=== PATIENT | male | born 1945 | race American Indian/Alaskan Native ===

== ENCOUNTER 2016-12-01 09:54 | Inpatient (IN) | payer MEDICARE ==
[2016-12-01 11:07] LABS: Anion Gap 18 mmol/L; BUN/Creatinine Ratio 18.46; Blood Urea Nitrogen 24 mg/dL (9-20); Carbon Dioxide 26 mmol/L (22-30); Chloride 103.2 mmol/L (98-107); Glucose 102 mg/dL (75-100); Potassium 4.8 mmol/L (3.6-5.0); Sodium 142 mmol/L (137-145)
[2016-12-01 11:09] LABS: Basophils % (Auto) 0.9 % (0.0-1.8); Eosinophils % (Auto) 5.1 % (0.0-4.3); Hematocrit 43.8 % (35.5-45.6); Hemoglobin 14.7 gm/dl (11.8-15.2); Mean Corpuscular HGB Conc 34 % (32-34); Mean Corpuscular Hemoglobin 32 pg (28-32); Mean Corpuscular Volume 95 fl (84-94); Platelet Count 184 K/mm3 (140-440); Red Blood Count 4.62 M/mm3 (3.65-5.03); Red Cell Distribution Width 13.8 % (13.2-15.2); White Blood Count 5.1 K/mm3 (4.5-11.0)
[2016-12-01] MEDS ORDERED: NITROSTAT SL ONE (17:56)
[2016-12-01] MEDS ORDERED: ZOFRAN IV ONE (17:56)
[2016-12-01] MEDS ORDERED: MORPHINE IV ONE (17:56)
[2016-12-01] MEDS ORDERED: BABY ASPIRIN PO ONE (17:57)
--- NOTE | 2016-12-01 17:57 | Emergency Department Report ---
HPI - General Chief Complaint: Chest Pain Time Seen by Provider: 12/01/16 17:35 - HPI HPI: The patient is 71-year-old male who presents for evaluation of chest pain. The patient reports chest pain since 7 AM this morning, constant since onset, pressure-like in quality, 7/10 in severity. The patient denies fever, truama to the chest, neck pain, parasthesias, dyspnea, cough, hemoptysis, palpitations, dizziness, syncope, unilateral leg swelling, calf muscle pain, history of DVT or PE, history of cancer, history of recent surgery or immobilization. ED Past Medical Hx - Past Medical History Hx Hypertension: Yes Hx Renal Disease: Yes Hx Psychiatric Treatment: Yes (depression) Additional medical history: BPH. high cholesterol - Surgical History Additional Surgical History: back - Social History Smoking Status: Never Smoker Substance Use Type: None - Medications Home Medications: Home Medications Medication Instructions Recorded Confirmed Last Taken Type Aspirin [Adult Low Dose Aspirin EC] 81 mg PO QDAY 12/01/16 12/01/16 Unknown History Dutasteride [Avodart] 0.5 cap PO QDAY 12/01/16 12/01/16 Unknown History Ergocalciferol(Vitamin D2)(Nf) 1.25 mg PO QWEEK 12/01/16 12/01/16 Unknown History Lisinopril [Zestril TAB] 5 mg PO QDAY 12/01/16 12/01/16 Unknown History Nortriptyline [Pamelor] 50 mg PO QDAY 12/01/16 12/01/16 Unknown History Simvastatin [Zocor TAB] 20 mg PO QDAY 12/01/16 12/01/16 Unknown History Tamsulosin [Flomax] 0.4 cap PO BID 12/01/16 12/01/16 Unknown History ED Review of Systems ROS: Stated complaint: CHEST PAIN Other details as noted in HPI Constitutional: denies: fever ENT: denies: throat or neck pain Respiratory: denies: cough, shortness of breath Cardiovascular: reports chest pain Endocrine: denies unexplained weight loss or gain Gastrointestinal: denies: abdominal pain, nausea Genitourinary: denies: dysuria Musculoskeletal: denies: leg swelling Skin: denies: rash Neurological: denies: headache Hematological/Lymphatic: denies: easy bleeding or easy bruising Psych: denies sadness or hopelessness Physical Exam - Physical Exam Vital Signs: Vital Signs 12/01/16 10:11 Temperature 98.4 F Pulse Rate 89 Respiratory 16 Rate Blood Pressure 140/73 O2 Sat by Pulse 99 Oximetry Physical Exam: General: well-nourished, well-developed, no acute distress Head: Normocephalic, atraumatic Eyes: normal sclera ENT: Mucous membranes are pink and moist Neck: trachea midline, neck supple, No neck stiffness, no cervical adenopathy Respiratory: Breath sounds equal bilaterally, no wheezing, rales, or rhonchi Cardio: S1 and S2 present, no murmurs, rubs, gallops, capillary refill is brisk Abdomen: Normoactive bowel sounds, soft abdomen, no rigidity, no guarding or rebound tenderness Musc: No pitting edema Skin: No rash Neuro: no facial drooping, normal speech Psych: Normal affect ED Course Vital Signs 12/01/16 10:11 Temperature 98.4 F Pulse Rate 89 Respiratory 16 Rate Blood Pressure 140/73 O2 Sat by Pulse 99 Oximetry ED Medical Decision Making - Lab Data Result diagrams: 12/01/16 10:36 12/01/16 10:36 - Medical Decision Making The patient was seen and examined by myself. The patient is placed on a manager film and continuous pulse ox. On initial evaluation, the patient was found to be in no distress. EKG was negative for findings suggestive of acute cardiac infarct. The patient is given an aspirin and a nitroglycerin tablet. Labs and imaging are obtained. The patient given IV morphine for his pain. Chest x-ray is negative for pneumothorax, focal consolidation, pulmonary vascular congestion, pleural effusion, or other obvious acute cardiopulmonary disease process. Lab results were non-revealing including negative troponin, WBC, hemoglobin, hematocrit, electrolytes, renal function. The patient was reevaluated and reported that their symptoms were improved. As the patient has chest pain and risk factors for development of acute coronary event, the patient will be admitted for close cardiopulmonary monitoring, serial troponins, and evaluation by cardiology. The physician on-call was contacted. They presented to the emergency department and evaluated the patient. They agreed to admit the patient. The ED admit order was placed. The patient was admitted in guarded condition. Critical care attestation.: If time is entered above; I have spent that time in minutes in the direct care of this critically ill patient, excluding procedure time. ED Disposition Clinical Impression: Acute chest pain Disposition: OP ADMITTED IP TO THIS HOSP Is pt being admited?: Yes Does the pt Need Aspirin: Yes Condition: Stable Time of Disposition: 17:57
--- NOTE | 2016-12-01 18:04 | Admit Criteria Form ---
Admission Criteria Documentation: CHEST PAIN Clinical Indications for Admission to Inpatient Care (Place 'X' for any and all applicable criteria): Admission is indicated for chest pain and ANY ONE of the following(1)(2)(3)(4)(5 ): [ ]I. Angina with acute coronary syndrome (Also use Myocardial Infarction or Angina guideline) [ ]II. Hemodynamic instability [ ]III. Angina needing acute intervention as indicated by ALL of the following( 11)(12): [ ]a) Unstable angina is present as indicated by angina that is ANY ONE of the following: [ ]i) New onset [ ]ii) Nocturnal [ ]iii) Prolonged at rest [ ]iv) Progressive [ ]b) Angina warrants acute intervention as indicated by ANY ONE of the following: [ ]i) Recurrent angina (e.g, not responding as previously to treatment) [ ]ii) Angina at rest or with low-level activities despite initial medical therapy [ ]iii) New or presumably new ST-segment depression on ECG [ ]iv) Signs or symptoms of heart failure (eg, dyspnea, pulmonary edema) [ ]v) New or worsening mitral regurgitation [ ]vi) Hemodynamic instability [ ]vii) Dangerous arrhythmia (eg, sustained ventricular tachycardia) [ ]viii) History of percutaneous coronary intervention within 6 months [ ]ix) History of coronary artery bypass graft surgery [ ]x) DARRELL risk score of 2 or greater[A] [ ]xi) History of Diabetes(14) [ ]xii) High-risk cardiac ischemia findings on noninvasive testing (e.g, echocardiogram, treadmill testing, nuclear scan) [ ]xiii) Chronic renal insufficiency (ie, estimated GFR less than 60 mL/min/1.732m) [ ]xiv) Left ventricular ejection fraction less than 40% [ ]IV. Evidence of OR (eg, cardiac biomarkers positive, ST-segment elevation on ECG) also use Myocardial Infarction Criteria Form. [ ]V. Pulmonary edema [ ]. Respiratory distress [ ]VII. Chest pain indicative of serious diagnosis other than coronary artery disease (eg, aortic dissection) [ ]VIII. Contraindications and/or Inappropriate clinical situations for Observational Care in patients with Chest Pain, when ANY ONE of the following is required: [ ]a) Patient with risk factor for pulmonary embolism, acute coronary syndrome and myocardial infarction (18) [ ]b) Patient with Pulmonary embolism require an average LOS of 4.3 days, therefore emergency department observation management is inappropriate 18,23 [ ]c) Painful condition/s in the elderly, have the highest rate of recidivism after emergency department observation management (10.8%) 20,21,22 [ ]d) Elevated cardiac biomarker requires intensive and exhaustive care (19) [X ]IX. General contraindications and/or Inappropriate clinical situations for Observational Care in patients with Chest Pain, when ANY ONE of the following is required: [ X]a) Prediction of prolongation of LOS based on ANY ONE of the following may be considered as a contraindication for observational care 2, 3, 4, 5, 6, 7, 8, 9, 10, 11 [ X]i) Age > 65 yrs. [ ]ii) Patient arriving by ambulance [ ]iii) Patient with high acuity [ ]iv) Patient requiring vital sign monitoring [ ]v) Patient on IV medication [ ]b) Systolic blood pressures 180mmHg 3,12 [ ]c) Patient with altered mental status including delirium and other alteration of consciousness, (3) [ ]d) Patient whose discharge disposition will be to a [place] [facility] home or rehabilitation home should not be managed in Emergency Department Observation Unit. CMS rule requires 3 days hospital stay before such placement. 3,13 [ ]e) Patient with failure to thrive due to broad array of etiologies 3,16,17 [ ]f) Inability to ambulate 3,14 Extended stay beyond goal length of stay may be needed for (1)(28): [ ]a) Specific condition diagnosed after evaluation (eg, pulmonary embolism, aortic dissection) [ ]b) Unstable angina [ ]c) Continued suspicion of acute coronary syndrome with inability to complete needed cardiac evaluation (eg, patient clinically unable to undergo stress testing) [ ]d) Myocardial infarction (Contents from ANGINA and CHEST PAIN clinical indications for admission to inpatient care have been integrated in this form) The original [facility] content created by [employer] has been revised. The portions of the content which have been revised are identified through the use of italic text or in bold, and [employer] [facility] has neither reviewed nor approved the modified material. All other unmodified content is copyright [facility]. Please see references footnoted in the original [employer] [facility] edition 2016 Admission Criteria Met: Yes
--- NOTE | 2016-12-01 19:45 | History and Physical Report ---
History of Present Illness Chief complaint: My chest hurts History of present illness: 71 YO Male with HTN, BPH, HLD, Depression presents to ED for evaluation. Pt states that he has been experiencing pain in his chest for the past 3 days with worsening symptoms over the past 8 hours. Pain is 6/10, substernal, nonradiating , not worsened with exertion, or relieved with rest. Pt denies Orthopnea/PND or difficulty breathing. Pt denies fever, chills, Palpitations, NVD, Syncope, Falls , vertigo, seizures, unintentional weight loss, night sweats, bone pain, or recent ill contacts, prolonged travel/immobility, calf pain, leg swelling, individual/family history of DVT/PE. Past History Past Medical History: hypertension Past Surgical History: No surgical history, Other (reviewed) Social history: , lives with family. denies: smoking, alcohol abuse, prescription drug abuse Family history: hypertension Medications and Allergies Allergies Allergy/AdvReac Type Severity Reaction Status Date / Time No Known Allergies Allergy Verified 12/01/16 10:17 Home Medications Medication Instructions Recorded Confirmed Last Taken Type Aspirin [Adult Low Dose Aspirin EC] 81 mg PO QDAY 12/01/16 12/01/16 Unknown History Dutasteride [Avodart] 0.5 cap PO QDAY 12/01/16 12/01/16 Unknown History Ergocalciferol(Vitamin D2)(Nf) 1.25 mg PO QWEEK 12/01/16 12/01/16 Unknown History Lisinopril [Zestril TAB] 5 mg PO QDAY 12/01/16 12/01/16 Unknown History Nortriptyline [Pamelor] 50 mg PO QDAY 12/01/16 12/01/16 Unknown History Simvastatin [Zocor TAB] 20 mg PO QDAY 12/01/16 12/01/16 Unknown History Tamsulosin [Flomax] 0.4 cap PO BID 12/01/16 12/01/16 Unknown History Review of Systems All systems: negative Cardiovascular: chest pain Exam - Constitutional Vitals: Temp Pulse Resp BP Pulse Ox 98.4 F 69 16 125/75 99 12/01/16 10:11 12/01/16 18:41 12/01/16 10:11 12/01/16 18:41 12/01/16 10:11 General appearance: Present: no acute distress, well-nourished - EENT Eyes: Present: PERRL ENT: hearing intact, clear oral mucosa - Neck Neck: Present: supple, normal ROM - Respiratory Respiratory effort: normal Respiratory: bilateral: CTA - Cardiovascular Heart Sounds: Present: S1 & S2. Absent: rub, click - Extremities Extremities: pulses symmetrical, No edema Peripheral Pulses: within normal limits - Abdominal General gastrointestinal: Present: soft, non-tender, non-distended, normal bowel sounds Male genitourinary: Present: normal - Integumentary Integumentary: Present: clear, warm, dry - Musculoskeletal Musculoskeletal: gait normal, strength equal bilaterally - Psychiatric Psychiatric: appropriate mood/affect, intact judgment & insight - Neurologic Neurologic: CNII-XII intact, moves all extremities Results - Labs CBC & Chem 7: 12/01/16 10:36 12/01/16 10:36 Labs: Abnormal lab results 12/01/16 12/01/16 Range/Units 10:36 10:36 MCV 95 H (84-94) fl Lymph % (Auto) 37.5 H (13.4-35.0) % Leslie % (Auto) 8.3 H (0.0-7.3) % Eos % (Auto) 5.1 H (0.0-4.3) % BUN 24 H (9-20) mg/dL Glucose 102 H (75-100) mg/dL Assessment and Plan - Patient Problems (1) ACS (acute coronary syndrome) Current Visit: Yes Status: Acute Plan to address problem: Serial cardiac enzymes, ekg, telemetry monitoring, echo, stress test, cardiology consulted, d dimer, (2) Accelerated hypertension Current Visit: Yes Status: Acute Plan to address problem: monitor BP q shift, continue current therapy (3) Depression Current Visit: Yes Status: Chronic Qualifiers: Depression Type: D Major depression recurrence: M Active/Remission status : A Major depression episode severity: M Psychotic features: P Trimester: T Plan to address problem: Resume home medication, Pt denies SI/HI, or hallucinations, (4) BPH (benign prostatic hyperplasia) Current Visit: Yes Status: Acute Qualifiers: Prostatic enlargement morphology: P Lower urinary tract symptom presence: L Plan to address problem: Stable, continue current therapy, (5) DVT prophylaxis Current Visit: Yes Status: Acute
[2016-12-01] MEDS ORDERED: DUONEB 0.5 MG-3 MG/3 ML SOLN IH PRN (20:27)
[2016-12-01] MEDS ORDERED: MILK OF MAGNESIA PO PRN (20:27)
[2016-12-01] MEDS ORDERED: ZOFRAN IV PRN (20:27)
[2016-12-01] MEDS ORDERED: DULCOLAX PR PRN (20:27)
[2016-12-01] MEDS ORDERED: TYLENOL PO PRN (20:27)
[2016-12-01] MEDS ORDERED: SODIUM CHLORIDE FLUSH SYRINGE 10 ML IV PRN (20:27)
[2016-12-01] MEDS ORDERED: PROVENTIL IH PRN (20:32)
--- NOTE | 2016-12-02 07:27 | XRay Report ---
AP CHEST: HISTORY: chest pain AP view of the chest demonstrates a normal mediastinal and cardiac contour with clear lungs and normal bony and soft tissue structures. IMPRESSION: Unremarkable AP chest.
[2016-12-02] MEDS ORDERED: LEXISCAN IV ONE ×2 (08:55→08:58)
--- NOTE | 2016-12-02 12:09 | Event Note ---
Date: 12/02/16 Patient admitted with atypical chest pain Echo - normal LVEF MPI - no ischemia ECG - no ischemic changes Alejo - negative D-Dimer - mildly elevated CXR - normal Recommendations: No further cardiac work-up is needed Consider CTA chest for borderline D-dimer elevation
[2016-12-02] MEDS ORDERED: NACL ONE (16:24)
--- NOTE | 2016-12-02 16:50 | Cat Scan Report ---
CTA CHEST INDICATION: Chest pain, abnormal d-dimer. COMPARISON: None similar. FINDINGS: Chest CTA performed following intravenous administration of 100 cc of Omnipaque 350. Rotational MIP's also obtained. Normal heart size. Mild aortic arch calcifications. No aortic aneurysm or dissection. No suspicious pulmonary arterial filling defects. No effusions or size significant adenopathy. Patent central airway. Normal imaged thyroid. Mild bilateral emphysematous changes, most involving the upper lobes. Nonspecific distal esophageal wall prominence/thickening, not excluded for gastroesophageal reflux and/or hiatal hernia, amongst others. Few small hepatic hypodensities/cysts, some sub-centimeter while the largest right hepatic lobe 1.7 cm focus measures 2 HU, axial image 224, series 2. Multilevel spinal degenerative changes, more so upper to mid thoracic. CONCLUSION: No CT evidence of pulmonary embolism with COPD and few other incidental findings, as above. Thank you for the opportunity to participate in this patient's care.
[2016-12-02 17:37] VITALS: BP 111/67
--- NOTE | 2016-12-02 18:03 | Discharge Summary ---
Providers - Providers Date of Admission: 12/01/16 20:27 Date of discharge: 12/02/16 Attending physician: CODIE ROCKWELL 12/01/16 20:30 Consult to Physician [CONS] Routine Consulting Provider: EYAD BRAMBILA Reason For Exam: acs Place consult to:: cardiology Notified:: freeman Was contact made?: Yes Primary care physician: CHRISTOPHER FOSTER Hospitalization Reason for admission: chest pain Condition: Stable Pertinent studies: Echocardiogram with normal left ventricular ejection fraction Lexicon stress was normal Procedures: Stress test Hospital course: Patient is 71-year-old gentleman with a history of hyperlipidemia, hypertension depression and BPH presented emergency to the Department on account of a chest pain of 3 days duration. Chest pain was 6/10 in severity, substernal. Nonradiating. Progressively worse in the past 8 hours prior to presentation. On admission patient was commenced on oxygen nitroglycerin aspirin and morphine. Serial cardiac enzymes were normal. EKG showed no ischemic changes. D-dimer found to be elevated. CT scan of the chest was negative for any pulmonary embolism. Stress thallium was done. Report was normal. Patient remained chest free since admission. He's therefore been discharged to follow primary care physician. Discharge planning discussed with the patient and his was in my time of documentation. Disposition: DISCHARGED TO HOME OR SELFCARE Time spent for discharge: 35 minutes Core Measure Documentation - Palliative Care Palliative Care/ Comfort Measures: Not Applicable - Core Measures Any of the following diagnoses?: none Exam - Constitutional Vitals: Temp Pulse Resp BP Pulse Ox 98.4 F 92 H 18 111/67 99 12/02/16 15:03 12/02/16 16:45 12/02/16 15:03 12/02/16 15:03 12/02/16 15:10 General appearance: Present: no acute distress, well-nourished - EENT Eyes: Present: PERRL ENT: hearing intact, clear oral mucosa - Neck Neck: Present: supple, normal ROM - Respiratory Respiratory: bilateral: CTA - Cardiovascular Heart Sounds: Present: S1 & S2. Absent: rub, click - Extremities Extremities: pulses symmetrical, No edema Peripheral Pulses: within normal limits - Abdominal General gastrointestinal: Present: soft, non-tender, non-distended, normal bowel sounds - Integumentary Integumentary: Present: clear, warm, dry - Musculoskeletal Musculoskeletal: gait normal, strength equal bilaterally - Psychiatric Psychiatric: appropriate mood/affect, intact judgment & insight - Neurologic Neurologic: CNII-XII intact, moves all extremities Plan Activity: advance as tolerated Weight Bearing Status: Weight Bear as Tolerated Follow up with: CHRISTOPHER FOSTER MD [Primary Care Provider] - 3-5 Days Prescriptions: Aspirin [Adult Low Dose Aspirin EC] 81 mg PO QDAY #30 tablet. Dutasteride [Avodart] 0.5 cap PO QDAY #30 capsule Ergocalciferol(Vitamin D2)(Nf) 1.25 mg PO QWEEK #30 Lisinopril [Zestril TAB] 5 mg PO QDAY #30 tablet
--- NOTE | 2016-12-03 03:07 | Treadmill Report ---
INDICATION: Chest pain. ORDERING PHYSICIAN: Chet Soto M.D. FINDINGS: There is no scintigraphic evidence of myocardial ischemia. The left ventricle is normal in size and systolic function. The left ventricular ejection fraction is measured at 65%. Normal wall motion and wall thickening is noted on gated imaging. CONCLUSION: Normal perfusion scan. JOB# [id number] JAMEL/QUAN
== END 2016-12-02 19:30 | disposition home or self-care (01) | DRG 313 ==
LOC: ED 09:54 → 4A 20:27
PROVIDERS: ADMIT Internal Medicine; ATTEND Family Medicine
DX: R07.9 Chest pain, unspecified (principal); I24.9 Acute ischemic heart disease, unspecified; N40.0 Benign prostatic hyperplasia without lower urinary tract symptoms; I10 Essential (primary) hypertension; E78.5 Hyperlipidemia, unspecified; F32.9 Major depressive disorder, single episode, unspecified; Z82.49 Family history of ischemic heart disease and other diseases of the circulatory system
CPT/HCPCS: 36415; 71010; 71275; 78452; 80048; 80061; 83880; 84484; 85025; 85379; 93005; 93010; 93017; 93306; 96374; 96375; A9502; J2270; J2405; J2785; Q9967

== ENCOUNTER 2016-12-23 11:07 | Outpatient (CLI) | payer MEDICARE ==
--- NOTE | 2016-12-23 12:20 | Magnetic Resonance Report ---
MRI BRAIN WITHOUT CONTRAST INDICATION: Memory loss, amnesia. COMPARISON: None similar. FINDINGS: Noncontrast multiplanar and multisequence MRI of the brain demonstrates normal ventricles and sulci without acute infarct, hemorrhage, mass effect or midline shift. Mild periventricular and few white matter FLAIR and T2 weighted hyperintensities. No abnormal extra-axial masses or fluid collections. Normal major intracranial vascular flow voids. Normal posterior fossa structures with symmetric seventh and eighth nerve complexes. Symmetric, grossly unremarkable eye globes. Approximately 1 cm left maxillary sinus mucus retention cyst or thickening inferiorly. Mild bilateral ethmoid sinusitis anteriorly may also be present, left greater than right. Slight left frontal sinus mucosal thickening. Grossly clear remainder imaged paranasal sinuses and mastoid air cells. Normal midline structures without evidence of Chiari malformation. CONCLUSION: No acute intracranial MRI abnormality with age-appropriate atrophy and mild sinusitis noted, as described. Thank you for the opportunity to participate in this patient's care.
== END 2016-12-23 11:08 | disposition home or self-care (01) ==
LOC: MRI 11:07
PROVIDERS: ATTEND Psychiatry & Neurology Neurology
DX: G31.89 Other specified degenerative diseases of nervous system (principal); R41.3 Other amnesia; J34.1 Cyst and mucocele of nose and nasal sinus; J32.2 Chronic ethmoidal sinusitis; N28.9 Disorder of kidney and ureter, unspecified; I10 Essential (primary) hypertension; F32.9 Major depressive disorder, single episode, unspecified; E78.00 Pure hypercholesterolemia, unspecified; Z72.0 Tobacco use
CPT/HCPCS: 70551

== ENCOUNTER 2017-01-06 08:17 | Day surgery (SDC) | payer MEDICARE ==
[2017-01-06 10:46] LABS: INR 0.97 (0.87-1.13)
[2017-01-06 10:47] LABS: Partial Thromboplastin Time 27.2 Sec. (24.2-36.6)
[2017-01-06 13:20] LABS: Glucose,CSF 62 mg/dL
--- NOTE | 2017-01-06 13:24 | History and Physical Report ---
History of Present Illness Date of examination: 01/06/17 Chief complaint: memory loss Medications and Allergies Allergies Allergy/AdvReac Type Severity Reaction Status Date / Time shellfish derived Allergy MOUTH RAW Unverified 12/23/16 11:09 AND SWELING Home Medications Medication Instructions Recorded Confirmed Last Taken Type Nortriptyline [Pamelor] 50 mg PO QHS 12/01/16 01/06/17 01/04/17 History Simvastatin [Zocor TAB] 20 mg PO QHS 12/01/16 01/06/17 01/04/17 History Tamsulosin [Flomax] 0.8 cap PO HS 12/01/16 01/06/17 01/04/17 History ALBUTEROL NEB's [Proventil 0.083% 2.5 mg IH Q6HRT PRN #100 nebu 12/02/16 Unknown Rx NEBS] Aspirin [Adult Low Dose Aspirin EC] 81 mg PO QDAY #30 tablet. 12/02/1601/04/17 Rx Ergocalciferol(Vitamin D2)(Nf) 1.25 mg PO QWEEK #30 12/02/16 01/06/17 01/03/17 Rx Dutasteride [Avodart] 0.5 cap PO QHS 01/06/17 01/06/17 01/04/17 History Lisinopril [Zestril TAB] 5 mg PO QHS 01/06/17 01/06/17 01/04/17 History Exam Vital Signs Temp Pulse Resp BP Pulse Ox 98.3 F 82 18 113/77 97 01/06/17 08:52 01/06/17 08:52 01/06/17 08:52 01/06/17 08:52 01/06/17 08:52
--- NOTE | 2017-01-06 13:26 | Procedure Note ---
Date of procedure: 01/06/17 Pre-op diagnosis: memory loss Post-op diagnosis: same Procedure: lumbar puncture Findings: clear fluid Anesthesia: local Surgeon: BHARAT HICKMAN Estimated blood loss: none Pathology: list (7cc csf) Specimen disposition: to lab Condition: stable Disposition: observation
--- NOTE | 2017-01-06 13:29 | Fluoroscopy Report ---
Lumbar puncture with opening pressure: Memory loss. The patient was placed prone on the fluoroscopic table. The skin was cleansed and 1% lidocaine used for local anesthesia. Under fluoroscopic observation an 18-gauge needle was successfully placed into the thecal sac at L4. An opening pressure of 11-12 cm of water was observed. 7 cc of clear fluid was removed into 3 separate vials and sent to lab for evaluation as requested. No complications encountered. Patient sent to [facility] for observation prior to discharge. Post procedure instructions given to patient.
[2017-01-06 14:02] VITALS: BP 133/72
[2017-01-06 14:07] LABS: Appearance,CSF Clear
[2017-01-06 14:08] LABS: White Blood Cell,CSF 60 /mm3 (1-10)
[2017-01-06 14:10] LABS: Basophils CSF 0 %; CSF Diff Status Complete
== END 2017-01-06 14:05 | disposition home or self-care (01) ==
LOC: OPU 08:17 → EDSTATUS 08:30 → OPU 14:05
PROVIDERS: ATTEND Psychiatry & Neurology Neurology
DX: R41.3 Other amnesia (principal); Z91.013 Allergy to seafood
CPT/HCPCS: 36415; 62270; 77003; 82947; 84160; 85610; 85730; 86403; 86592; 87102; 87116; 87220; 89051

== ENCOUNTER 2017-03-02 11:06 | Day surgery (SDC) | payer MEDICARE ==
[~2017-03-02 11:06] MED LIST: PEPCID PO NR
--- NOTE | 2017-03-02 11:49 | Anesthesia Consultation ---
Anesthesia Consult and Med Hx Date of service: 03/02/17 - Airway Anesthetic Teeth Evaluation: Dentures ROM Head & Neck: Adequate Mental/Hyoid Distance: Adequate Mallampati Class: Class II Intubation Access Assessment: Probably Good - Pulmonary Exam CTA: Yes - Cardiac Exam Cardiac Exam: RRR - Pre-Operative Health Status ASA Pre-Surgery Classification: ASA2 Proposed Anesthetic Plan: General - Pulmonary Hx Smoking: Yes (STOPPED X 20 YRS- 1/2PPD) Hx Asthma: Yes (RARE INHALER USE) Hx Sleep Apnea: No (CHANDRA PRE SCREEN HIGH RISK) - Cardiovascular System Hx Hypertension: Yes (X 1 YR) - Central Nervous System Hx Back Pain: Yes Hx Psychiatric Problems: Yes - Endocrine Hx Renal Disease: No Hx Cirrhosis: No Hx Thyroid Disease: No - Hematic Hx Anemia: No - Other Systems Hx Cancer: No
--- NOTE | 2017-03-02 11:49 | Anesthesia Day of Surgery ---
Anesthesia Day of Surgery - Day of Surgery Patient Examined: Yes Patient H&P Reviewed: Yes Patient is NPO: Yes
[2017-03-02] MEDS ORDERED: ZOFRAN IV PRN (11:50)
[2017-03-02] MEDS ORDERED: DILAUDID IV PRN (11:50)
[2017-03-02] MEDS: NACL 0.9% 1000 ML 1,000 ML IV SCH ×2 (12:30→17:07)
[2017-03-02] MEDS ORDERED: SUBLIMAZE ONE (12:54)
[2017-03-02] MEDS ORDERED: DIPRIVAN 10 MG/ML IV ONE (12:54)
[2017-03-02] MEDS ORDERED: XYLOCAINE MPF 2% ONE (12:56)
[2017-03-02] MEDS ORDERED: OMNIPAQUE (300 MG) IR ONE (14:46)
[2017-03-02] MEDS ORDERED: WATER FOR IRRIG STERILE IR ONE (14:46)
[2017-03-02] MEDS ORDERED: ANCEF/STERILE WATER 2 GM/20 ML IV NR (15:00)
[2017-03-02] MEDS ORDERED: ZOFRAN IV ONE (16:59)
[2017-03-02 18:04] VITALS: BP 141/70
--- NOTE | 2017-03-03 11:26 | Fluoroscopy Report ---
RETROGRADE PYELOGRAM: There is adequate filling of the ureters and intrarenal collecting systems with no filling defects or anatomic abnormalities identified.
--- NOTE | 2017-03-04 11:05 | Operative Report ---
PREOPERATIVE DIAGNOSES: Atypical cytology, benign prostatic hypertrophy. POSTOPERATIVE DIAGNOSES: Atypical cytology, benign prostatic hypertrophy. PROCEDURES: Cystoscopy, retrograde pyelogram, bladder biopsies, and biopsies of suspicious areas of prostatic urethra, fulguration, and biopsy. SPECIMENS: There were 7 specimens, sent within 5 containers. Containers all reviewed by me at the end of the procedure for correct documentation. BLOOD TRANSFUSION: None. COMPLICATIONS: None. CLINICAL INDICATION: The patient counseled RCBA, antibiotics, SCDs, history of resection of prostate. ESTIMATED BLOOD LOSS: Minimal. ____. DESCRIPTION OF PROCEDURE: The patient was transferred to the OR, supine position, anesthesia dorsal lithotomy, prepped and draped in standard fashion. Had antibiotics, SCDs. Cystoscope passed, normal penile urethra, and bulbar urethra. Prostatic urethra demonstrated some median protrusion and patient's left lateral prostatic lobe with some slightly irregular and suspicious areas, could just be BPH with inflammation or just regrowth or it could be some other or serious pathology. Upon entering the bladder, pancystoscopy 30 and 70-degree lens was performed. Bilateral ureters were visualized just at the edge of the bladder neck. Left ureter cannulated with an 8-Lux[place]bourg[place] cone-tipped catheter passed, contrast injected. Normal left distal ureter, proximal ureter, renal pelvis, and calices. No filling defects or hydronephrosis. Repeated on the right side with similar normal findings, pancystoscopy of the bladder demonstrated no high or medium suspicious areas. Bladder biopsies were then performed. Bladder base and a posterior bladder wall biopsy taken with flexible biopsy forceps, sent within one container, labeled as a posterior bladder wall. Then, the next specimen was left lateral bladder wall biopsy, right bladder wall biopsy, sent within one container labeled right bladder wall. Next, a trigone biopsy sent. Next, upon passing through the prostatic urethra, there was suspicious areas and some regrowth of prostate tissue, but seemed adequately open at the bladder neck for voiding. The suspicious areas just at the median lobe internally are at the posterior aspect of the prostate with a raised area looked a little bit inflamed, little irregular, and biopsy was taken. This was cauterized later and then the left lateral de leon protrusion and some irregular tissue, biopsy taken. These areas were cauterized. All bladder biopsies were cauterized, fulgurated, and bladder irrigated several times. Cystoscope removed. Exam under anesthesia, palpable prostate, no nodules, digital rectal exam, testicles. No nodules or masses. The patient awakened and transferred to the PACU in good and stable condition. JOB# [id number] ATS/NTS
== END 2017-03-02 17:59 | disposition home or self-care (01) ==
LOC: OR 11:06
PROVIDERS: ATTEND Urology
DX: N40.0 Benign prostatic hyperplasia without lower urinary tract symptoms (principal); N32.89 Other specified disorders of bladder; J45.909 Unspecified asthma, uncomplicated; I10 Essential (primary) hypertension; F32.9 Major depressive disorder, single episode, unspecified; E78.5 Hyperlipidemia, unspecified; Z87.891 Personal history of nicotine dependence; Z98.890 Other specified postprocedural states; Z79.82 Long term (current) use of aspirin; Z79.899 Other long term (current) drug therapy; Z80.3 Family history of malignant neoplasm of breast
CPT/HCPCS: 52204; 74420; 88305; A4217; J0690; J1170; J2405; J2704; J3010; J7030; Q9967

== ENCOUNTER 2019-02-17 09:46 | Outpatient (CLI) | payer MEDICARE ==
--- NOTE | 2019-02-17 11:10 | Ultrasound Report ---
ULTRASOUND ABDOMEN, COMPLETE INDICATION: R11.2): Nausea with vomiting, unspecified. COMPARISON: No relevant prior imaging study available. FINDINGS: Pancreas: No significant abnormality. Abdominal Aorta: No significant abnormality. IVC: No significant abnormality. Liver: The liver measures 14.4 cm in length. No significant abnormality. Normal hepatopedal blood fl ow in the main portal vein. Gallbladder: There appear to be a few small polyps in the gallbladder measuring up to 3 mm. No eviden ce for cholelithiasis. Bile ducts: No significant abnormality. Common bile duct measures 4.5 mm. Kidneys: Right: 8.8 cm in length. No significant abnormality. Left: 9.6 cm in length. No signific ant abnormality. Spleen: No significant abnormality. Free fluid: None. Additional Findings: None. IMPRESSION: A few tiny gallbladder polyps are identified. Otherwise, unremarkable abdominal sonogram.. Signer Name: Shahbaz Bay Jr, MD Signed: 02/17/2019 11:05 AM Workstation Name: [id number]
== END 2019-02-17 09:47 | disposition home or self-care (01) ==
LOC: US 09:46
PROVIDERS: ATTEND Internal Medicine
DX: D41.4 Neoplasm of uncertain behavior of bladder (principal); I10 Essential (primary) hypertension; E78.00 Pure hypercholesterolemia, unspecified; J45.909 Unspecified asthma, uncomplicated
CPT/HCPCS: 76700

== ENCOUNTER 2019-05-11 14:56 | Emergency (ER) | payer MEDICARE ==
--- NOTE | 2019-05-11 15:12 | Emergency Department Report ---
Blank Doc - Documentation Documentation: 73-year-old male that presents with blood stools and was sent by GI for further testing with CT scan. This initial assessment/diagnostic orders/clinical plan/treatment(s) is/are subject to change based on patient's health status, clinical progression and re- assessment by fellow clinical providers in the ED. Further treatment and workup at subsequent clinical providers discretion. Patient/guardians urged not to elope from the ED as their condition may be serious if not clinically assessed and managed. Initial orders include: 1- Patient sent to MAIN ED for further evaluation and treatment 2- labs 3- UA
[2019-05-11 15:13] VITALS: BP 119/59
[2019-05-11 15:39] LABS: Basophils % (Auto) 0.9 % (0.0-1.8); Eosinophils # (Auto) 0.1 K/mm3 (0.0-0.4); Eosinophils % (Auto) 4.4 % (0.0-4.3); Hematocrit 43.5 % (35.5-45.6); Hemoglobin 14.4 gm/dl (11.8-15.2); Lymphocytes # (Auto) 1.3 K/mm3 (1.2-5.4); Lymphocytes % (Auto) 40.5 % (13.4-35.0); Mean Corpuscular HGB Conc 33 % (32-34); Mean Corpuscular Volume 94 fl (84-94); Monocytes # (Auto) 0.4 K/mm3 (0.0-0.8); Monocytes % (Auto) 12.7 % (0.0-7.3); Platelet Count 131 K/mm3 (140-440); Red Blood Count 4.62 M/mm3 (3.65-5.03); Red Cell Distribution Width 13.5 % (13.2-15.2)
[2019-05-11 15:59] LABS: Alanine Aminotransferase 9 units/L (7-56); Albumin 4.2 g/dL (3.9-5); BUN/Creatinine Ratio 14; Blood Urea Nitrogen 18 mg/dL (9-20); Calcium 10.2 mg/dL (8.4-10.2); Hemolysis Index 6; INR 0.93 (0.87-1.13)
[2019-05-11 16:00] LABS: Partial Thromboplastin Time 23.8 Sec. (24.2-36.6)
--- NOTE | 2019-05-11 21:21 | Emergency Department Report ---
HPI - General Chief Complaint: GI Bleed Time Seen by Provider: 05/11/19 15:11 - HPI HPI: 73-year-old male presents to the emergency department with complaint of some black stools. The patient has been dealing with some rectal bleeding for the past 2 months. He follows with [facility] and Dr. Boykin. The patient allegedly had a CT scan of the abdomen and pelvis on Wednesday, about one week ago. He also had endoscopy on Wednesday, 4 days ago. The says that the results showed diverticulitis. However, over the past 1-2 days the patient has been having some increased abdominal cramping and some dark stool. They called [facility] and were told to come to the emergency department for further evaluation. ED Past Medical Hx - Past Medical History Previous Medical History?: Yes Hx Hypertension: Yes (X 1 YR) Hx Renal Disease: No Hx Psychiatric Treatment: Yes (depression) Hx Asthma: Yes (RARE INHALER USE) Additional medical history: BPH. high cholesterol - Surgical History Past Surgical History?: Yes Additional Surgical History: back - Social History Smoking Status: Never Smoker Substance Use Type: None - Medications Home Medications: Home Medications Medication Instructions Recorded Confirmed Last Taken Type Nortriptyline(Nf) [Pamelor(Nf)] 50 mg PO QHS 12/01/16 03/02/17 03/02/17 01:30 History Simvastatin (Nf) [Zocor TAB] 20 mg PO QHS 12/01/16 03/02/17 03/02/17 01:30 History Tamsulosin [Flomax] 0.8 cap PO HS 12/01/16 03/02/17 03/02/17 01:30 History ALBUTEROL NEB's [Proventil 0.083% 2.5 mg IH Q6HRT PRN #100 nebu 12/02/16 03/02/17 03/02/17 01:30 Rx NEBS] Aspirin [Adult Low Dose Aspirin EC] 81 mg PO QDAY #30 tablet. 12/02/16 02/12/17 01/04/17 Rx Ergocalciferol(Vitamin D2)(Nf) 1.25 mg PO QWEEK #30 12/02/16 03/02/17 03/01/17 02:30 Rx Dutasteride [Avodart] 0.5 cap PO QHS 01/06/17 03/02/17 03/02/17 01:30 History Lisinopril [Zestril TAB] 5 mg PO QHS 01/06/17 03/02/17 03/02/17 01:30 History Acetaminophen/Codeine [Tylenol 1 tab PO Q4HR PRN 02/12/17 03/02/17 03/01/17 18:00 History /Codeine # 3 tab] ED Review of Systems ROS: Stated complaint: DOC SENT/BLACK STOOL Other details as noted in HPI Comment: All other systems reviewed and negative Constitutional: denies: chills, fever Eyes: denies: eye pain, vision change ENT: denies: ear pain, throat pain Respiratory: denies: cough, shortness of breath Cardiovascular: denies: chest pain, palpitations Gastrointestinal: abdominal pain, melena. denies: vomiting Genitourinary: denies: dysuria, discharge Musculoskeletal: denies: back pain, arthralgia Skin: denies: rash, lesions Neurological: denies: headache, weakness Physical Exam - Physical Exam Vital Signs: Vital Signs 05/11/19 15:11 Temperature 97.5 F L Pulse Rate 97 H Respiratory 16 Rate Blood Pressure 119/59 O2 Sat by Pulse 95 Oximetry Physical Exam: GENERAL: The patient is well-developed well-nourished. HENT: Normocephalic. Atraumatic. Patient has moist mucous membranes. EYES: Extraocular motions are intact. NECK: Supple. Trachea is midline. CHEST/LUNGS: Clear to auscultation. There is no respiratory distress noted. HEART/CARDIOVASCULAR: Regular. There is no tachycardia. There is no murmur. ABDOMEN: Abdomen is soft. Mild lower abdominal tenderness to palpation. No guarding. Patient has normal bowel sounds. There is no abdominal distention. SKIN: Skin is warm and dry. NEURO: The patient is awake, alert, and oriented. The patient is cooperative. The patient has no focal neurologic deficits. Normal speech. MUSCULOSKELETAL: There is no tenderness or deformity. There is no evidence of acute injury. RECTAL: There is a small nonthrombosed hemorrhoid at the 6 o'clock position. No gross blood. There was very little stool for guaiac testing. The small amount of stool obtained was brown in color and negative on guaiac testing. ED Course Vital Signs 05/11/19 15:11 Temperature 97.5 F L Pulse Rate 97 H Respiratory 16 Rate Blood Pressure 119/59 O2 Sat by Pulse 95 Oximetry - Consultations Consultation #1: 05/11/19 23:55 I spoke with the job site supervisor on-call for [facility], Dr. Bush. He agrees that the patient appears safe for discharge home at this t [facility] for outpatient follow-up as the patient does not have any signs of any rectal bleeding, specifically any melena, and his hemoglobin is normal at 14.4. ED Medical Decision Making - Lab Data Result diagrams: 05/11/19 15:22 05/11/19 15:22 - Medical Decision Making This patient presents with a complaint of some rectal bleeding that more recently has turned to melena. However the patient was already had a CT scan of the abdomen and pelvis and endoscopy within the last week and he has the diagnosis of diverticulosis and diverticulitis. On examination this evening, the patient does not have any gross blood and the very small amount of stool that was obtained was brown in color and negative on guaiac testing. Abdominal x-ray shows nonspecific nonobstructive bowel gas. His labs have been unrema rkable including a normal stable hemoglobin of greater than 14. His vital signs are stable throughout his ED course. The patient appears safe for discharge home and has been instructed to follow-up with his job site supervisor the next few days. He will return to the emergency Department with any worsening of his symptoms or any acute distress. - Differential Diagnosis malignancy, diverticulosis, gastritis, duodenal ulcer Critical Care Time: No Critical care attestation.: If time is entered above; I have spent that time in minutes in the direct care of this critically ill patient, excluding procedure time. ED Disposition Clinical Impression: Rectal bleeding Abdominal pain Qualifiers: Abdominal location: lower abdomen, unspecified Qualified Code(s): R10.30 - Lower abdominal pain, unspecified Disposition: DC-01 TO HOME OR SELFCARE Is pt being admited?: No Condition: Stable Instructions: Rectal Bleeding (ED) Additional Instructions: Please follow-up with your job site supervisor in the next few days. Return to the emergency Department with any worsening of your symptoms or any acute distress. Referrals: CLOVER BOYKIN MD [Staff Physician] - 2-3 Days Forms: Accompanied Note Time of Disposition: 22:29
[2019-05-11] MEDS ORDERED: DICYCLOMINE 20 MG TAB PO ONE (21:22)
--- NOTE | 2019-05-11 22:21 | XRay Report ---
ABDOMEN 2 VIEW(S) INDICATION / CLINICAL INFORMATION: Abd pain. COMPARISON: None available. FINDINGS: TUBES / LINES: None. BOWEL GAS PATTERN: No significant abnormality. FREE AIR / EXTRALUMINAL GAS: None seen. ADDITIONAL FINDINGS: There are scattered diverticula in the descending colon seen. IMPRESSION: 1. No significant abnormality. Signer Name: Felipe Ellis MD Signed: 05/11/2019 10:16 PM Workstation Name: [id number]
== END 2019-05-11 23:08 | disposition home or self-care (01) ==
LOC: ED 14:56
DX: K62.5 Hemorrhage of anus and rectum (principal); I10 Essential (primary) hypertension; J45.909 Unspecified asthma, uncomplicated; F32.9 Major depressive disorder, single episode, unspecified; E78.00 Pure hypercholesterolemia, unspecified; Z91.013 Allergy to seafood; Z79.899 Other long term (current) drug therapy
CPT/HCPCS: 36415; 74019; 80053; 83690; 85025; 85610; 85730; 99284